=== PATIENT | female | born 1990 ===

== ENCOUNTER → 2020-02-18 | Outpatient (CLI) | payer OTHER | END | disposition home or self-care (01) | LOC: PRENATAL 15:23 | PROVIDERS: ATTEND Obstetrics & Gynecology | DX: O26.842 Uterine size-date discrepancy, second trimester (principal); O30.042 Twin pregnancy, dichorionic/diamniotic, second trimester ==

== ENCOUNTER → 2020-03-22 | Outpatient (CLI) | payer OTHER | END | disposition home or self-care (01) | LOC: PRENATAL 03-19 10:00 | PROVIDERS: ATTEND Obstetrics & Gynecology Maternal & Fetal Medicine | DX: O35.0XX2 Maternal care for (suspected) central nervous system malformation in fetus, fetus 2 (principal); O30.002 Twin pregnancy, unspecified number of placenta and unspecified number of amniotic sacs, second trimester; O98.512 Other viral diseases complicating pregnancy, second trimester; O35.3XX2 Maternal care for (suspected) damage to fetus from viral disease in mother, fetus 2; Z36.89 Encounter for other specified antenatal screening; Z3A.21 21 weeks gestation of pregnancy ==

== ENCOUNTER 2020-04-27 20:58 | Outpatient (CLI) | payer OTHER | END 2020-04-28 14:30 | disposition home or self-care (01) | LOC: OBS/DEL 20:58 | PROVIDERS: ATTEND Obstetrics & Gynecology | DX: O26.842 Uterine size-date discrepancy, second trimester (principal); O26.892 Other specified pregnancy related conditions, second trimester; R10.2 Pelvic and perineal pain; O60.02 Preterm labor without delivery, second trimester; O30.042 Twin pregnancy, dichorionic/diamniotic, second trimester ==

== ENCOUNTER → 2020-05-24 | Outpatient (CLI) | payer OTHER | END | disposition home or self-care (01) | LOC: PRENATAL 05-10 11:00 | PROVIDERS: ATTEND Obstetrics & Gynecology Maternal & Fetal Medicine | DX: O26.843 Uterine size-date discrepancy, third trimester (principal); O30.003 Twin pregnancy, unspecified number of placenta and unspecified number of amniotic sacs, third trimester; Z36.89 Encounter for other specified antenatal screening; Z3A.30 30 weeks gestation of pregnancy ==

== ENCOUNTER → 2020-06-21 | Outpatient (CLI) | payer OTHER | END | disposition home or self-care (01) | LOC: PRENATAL 14:00 | PROVIDERS: ATTEND Obstetrics & Gynecology Maternal & Fetal Medicine | DX: O36.8132 Decreased fetal movements, third trimester, fetus 2 (principal); O26.843 Uterine size-date discrepancy, third trimester; O35.0XX2 Maternal care for (suspected) central nervous system malformation in fetus, fetus 2; Z36.89 Encounter for other specified antenatal screening; Z3A.34 34 weeks gestation of pregnancy ==

== ENCOUNTER → 2020-06-28 | Outpatient (CLI) | payer OTHER | END | disposition home or self-care (01) | LOC: PRENATAL 13:36 | PROVIDERS: ATTEND Obstetrics & Gynecology Maternal & Fetal Medicine | DX: O24.410 Gestational diabetes mellitus in pregnancy, diet controlled (principal); O30.93 Multiple gestation, unspecified, third trimester; O36.8132 Decreased fetal movements, third trimester, fetus 2; Z36.89 Encounter for other specified antenatal screening; Z3A.35 35 weeks gestation of pregnancy ==

== ENCOUNTER → 2020-07-06 | Outpatient (CLI) | payer OTHER ==
[~2020-07-06] MED LIST: FOLIC ACID0.8 M1 PO; PRENATAL TABLE1 EAC1 PO; UNISOM25 MG PO
== END | disposition home or self-care (01) ==
LOC: PRENATAL 10:30
PROVIDERS: ATTEND Obstetrics & Gynecology Maternal & Fetal Medicine
DX: O30.93 Multiple gestation, unspecified, third trimester (principal); Z36.89 Encounter for other specified antenatal screening; Z3A.36 36 weeks gestation of pregnancy

== ENCOUNTER 2020-07-09 02:47 | Inpatient (IN) | payer OTHER ==
[~2020-07-09] VITALS: Ht 152.4 cm; Wt 73.0 kg
[2020-07-09] MEDS ORDERED: PRENATAL TABLE1 EAC1 PO (03:34)
[2020-07-09] MEDS ORDERED: FOLIC ACID0.8 M1 PO (03:35)
[2020-07-09] MEDS ORDERED: UNISOM25 MG PO (03:35)
== END 2020-07-12 15:39 | disposition home or self-care (01) | DRG 788 ==
LOC: LDR 02:47 → OB/GYN 02:47 → O/R 13:35 → OB/GYN 16:08
PROVIDERS: ADMIT Obstetrics & Gynecology; ATTEND Obstetrics & Gynecology
PROC: 4A1HXFZ Monitoring of Products of Conception, Cardiac Rhythm, External Approach (ICD-10-PCS; 2020-07-09)
PROC: 10D00Z1 Extraction of Products of Conception, Low, Open Approach (ICD-10-PCS; principal; 2020-07-09 12:00)
PROC: 30233N1 Transfusion of Nonautologous Red Blood Cells into Peripheral Vein, Percutaneous Approach (ICD-10-PCS; 2020-07-11)
DX: O60.14X1 Preterm labor third trimester with preterm delivery third trimester, fetus 1 (principal); O60.14X2 Preterm labor third trimester with preterm delivery third trimester, fetus 2; O64.1XX2 Obstructed labor due to breech presentation, fetus 2; O30.043 Twin pregnancy, dichorionic/diamniotic, third trimester; O24.419 Gestational diabetes mellitus in pregnancy, unspecified control; O90.81 Anemia of the puerperium; Z3A.36 36 weeks gestation of pregnancy; Z37.2 Twins, both liveborn; Z20.828 Contact with and (suspected) exposure to other viral communicable diseases